=== PATIENT | male | born 1995 | race Caucasian/White ===

== ENCOUNTER 2020-05-11 09:56 | Emergency (ER) | payer BC, SELFPAY ==
[2020-05-11 09:57] VITALS: BP 164/98; PULSE 73; RESP 16; TEMP 36.9; O2SAT 97; BMI 32.5
--- NOTE | 2020-05-11 09:58 | XR_ITS ---
PROCEDURE: XR FOOT RT MIN 3V CLINICAL INDICATION: toe pain Pain, injury COMPARISON: No exams were available for comparison FINDINGS: There is a severely comminuted fracture involving the proximal phalanx of the 2nd toe. Fracture fragments are displaced laterally and dorsally. There is a longitudinal component extending into the articular surface of the PIP joint. Mildly displaced fractures are also present involving the distal shaft of the 2nd 3rd and 4th metatarsals. IMPRESSION: There is a severely comminuted fracture involving the proximal phalanx of the 2nd toe. Fracture fragments are displaced laterally and dorsally. There is a longitudinal component extending into the articular surface of the PIP joint. Mildly displaced fractures are also present involving the distal shaft of the 2nd 3rd and 4th metatarsals. Dictated by: Ayush Gallo MD 05/11/2020 11:05 Ayush Gallo MD in [place] 05/11/2020 11:05
[2020-05-11 10:09] VITALS: BMI 32.5
--- NOTE | 2020-05-11 10:20 | HMH.EDGENADL ---
ED Disposition Clinical Impression: Open fracture of toe of right foot Qualifiers: Encounter type: initial encounter Toe: lesser toe Phalanx: proximal Fracture alignment: displaced Qualified Code(s): S92.511B - Displaced fracture of proximal phalanx of right lesser toe(s), initial encounter for open fracture Metatarsal bone fracture Qualifiers: Encounter type: initial encounter Metatarsal bone: second Fracture type: closed Fracture alignment: nondisplaced Laterality: right Qualified Code(s): S92.324A - Nondisplaced fracture of second metatarsal bone, right foot, initial encounter for closed fracture Phalanx fracture, foot Qualifiers: Encounter type: initial encounter Toe: lesser toe Fracture type: open Phalanx: proximal Fracture alignment: displaced Laterality: right Qualified Code(s): S92.511B - Displaced fracture of proximal phalanx of right lesser toe(s), initial encounter for open fracture Disposition: Xfer Critical Access Hosp Condition on Discharge: Fair Referrals: PCP,No [Primary Care Provider] - Forms: Transfer Record - ED Time of Disposition: 11:18 - Critical Care Critical Care Time: No Attestation: On 05/11/20, the high probability of a clinically significant, sudden or life threatening deterioration of the following system(s) required my full and direct attention, intervention and personal management. The time I documented below is in addition to time spent performing reported procedures but includes the following listed in this critical care notation. Medical Decision Making - Medical Records Medical records reviewed: Yes: I reviewed the patient's medical records. - Fede Inquiry Pt receiving controlled substance: Yes Fede was queried for this patient: Yes Reference #:: [id number] Risks and benefits of using a controlled substance: were discussed with pt by me Vital Signs: 05/11/20 09:57 05/11/20 10:41 05/11/20 11:17 Temperature 98.5 F Temperature Source Oral Pulse Rate Pulse Rate [Right] 73 78 68 Respiratory Rate 16 Blood Pressure Blood Pressure [Right Arm] 164/98 H 159/89 H 132/91 H Blood Pressure Mean [Right Arm] 120 112 104 Blood Pressure Source [Right Arm] Automatic Cuff Automatic Cuff Blood Pressure Position Blood Pressure Position [Right Arm] Sitting Sitting Sitting 02 Sat by Pulse Oximetry 97 97 Oxygen Delivery Method Room Air Room Air 05/11/20 12:08 Temperature 98 F Temperature Source Oral Pulse Rate 78 Pulse Rate [Right] Respiratory Rate 16 Blood Pressure 132/93 H Blood Pressure [Right Arm] Blood Pressure Mean [Right Arm] Blood Pressure Source [Right Arm] Blood Pressure Position Sitting Blood Pressure Position [Right Arm] 02 Sat by Pulse Oximetry Oxygen Delivery Method Room Air Orders (Tests/Meds): ED MEDICATIONS Discontinued Medications Generic Name Dose Route Start Last Admin Trade Name Shahana PRN Reason Stop Dose Admin Cefazolin Sodium 2 gm/ Sodium 100 mls @ 200 mls/hr 05/11/20 09:59 05/11/20 10:12 Chloride IV 05/11/20 10:28 200 mls/hr ONCE ONE Administration Protocol Levofloxacin/Dextrose 750 mg in 150 mls @ 100 mls/hr 05/11/20 11:00 05/11/20 10:59 Levofloxacin 750mg/150ml Premix IV 05/25/20 10:59 100 mls/hr Q24H ELIDIA Administration Protocol Lidocaine HCl 10 ml 05/11/20 11:09 05/11/20 11:47 Lidocaine 1% 10ml Mdv SQ 05/11/20 11:10 10 ml ONCE ONE Administration Morphine Sulfate 4 mg 05/11/20 10:10 05/11/20 10:12 Morphine 4mg/Ml Syringe IV 05/11/20 10:11 4 mg ONCE ONE Administration Morphine Sulfate 4 mg 05/11/20 10:42 05/11/20 10:44 Morphine 4mg/Ml Syringe IV 05/11/20 10:43 4 mg ONCE ONE Administration Morphine Sulfate 4 mg 05/11/20 11:46 05/11/20 11:46 Morphine 4mg/Ml Syringe IV 05/11/20 11:47 4 mg ONCE ONE Administration Ondansetron HCl 4 mg 05/11/20 10:10 05/11/20 10:11 Ondansetron 4mg/2ml Vial IV 05/11/20 10:11 4 mg ONCE ONE Administration T
[2020-05-11 10:41] VITALS: BP 159/89; PULSE 78
--- NOTE | 2020-05-11 10:50 | PC.NURSE ---
Calling [facility] at this time. Dr Cooper is out of the office for the rest of the week.
[2020-05-11 11:17] VITALS: BP 132/91; PULSE 68; O2SAT 97
--- NOTE | 2020-05-11 11:30 | PC.NURSE ---
rt foot 2nd digit irrigated with sterile water, adaptic dsd applied. posterior splint applied. pt given crutches with teaching on use. pt demonstrated walking with crutches.
--- NOTE | 2020-05-11 11:39 | PC.NURSE ---
Gave report to Patricia at [facility], ER
[2020-05-11 12:08] VITALS: BP 132/93; PULSE 78; RESP 16; TEMP 36.6; O2SAT 98
== END 2020-05-11 12:11 | disposition critical access hospital (66) ==
PROVIDERS: Emergency Provider Emergency Medicine
DX: S92.511B Displaced fracture of proximal phalanx of right lesser toe(s), initial encounter for open fracture (principal); S92.324A Nondisplaced fracture of second metatarsal bone, right foot, initial encounter for closed fracture; S92.334A Nondisplaced fracture of third metatarsal bone, right foot, initial encounter for closed fracture; S92.344A Nondisplaced fracture of fourth metatarsal bone, right foot, initial encounter for closed fracture; W01.0XXA Fall on same level from slipping, tripping and stumbling without subsequent striking against object, initial encounter; Y92.019 Unspecified place in single-family (private) house as the place of occurrence of the external cause; Z23 Encounter for immunization
CPT/HCPCS: 29515; 73630; 90471; 90715; 96365; 96367; 96372; 96375; 96376; 99284; J1956; J2405

== ENCOUNTER 2021-02-15 18:50 | Emergency (ER) | payer BC, SELFPAY ==
[2021-02-15 20:29] VITALS: BP 155/78; PULSE 75; RESP 18; TEMP 37.4; O2SAT 98; BMI 31.2
[2021-02-15 20:46] VITALS: BP 155/78; PULSE 75; RESP 18; TEMP 37.4
[2021-02-15 20:50] LABS: UTC Strep Screen (Rapid) Positive (Negative)
--- NOTE | 2021-02-15 21:00 | HMH.EDUTC ---
[facility] [place] Disposition Clinical Impression: Strep throat Disposition: Home, Self-Care Condition on Discharge: Good Instructions: DI for Strep Throat, Strep Throat Additional Instructions: Drink plenty of fluids. Take tylenol or ibuprofen for pain or fever. Take the medications as directed. Follow up with your regular doctor. GO TO THE ER FOR ANY WORSENING SYMPTOMS Throw your tooth brush away and get a new one. Prescriptions: Brompheniramine/Pseudoephed/Dm [Bromfed Dm Cough Syrup] 5 ml PO Q6HP PRN #240 ml PRN Reason: Cough [facility]: [facility] Amoxicillin/Potassium Clav [Augmentin 875-125 Tablet] 1 tab PO Q12H 10 Days #20 tab Transmission Status: Pending to [facility] predniSONE [Deltasone 10mg tablet] 10 mg PO BID 3 Days #6 tab Transmission Status: Pending to [facility] Referrals: Provider,Referral, MD [Primary Care Provider] - Forms: Work/School Release Time of Disposition: 21:02 Medical Decision Making - Medical Records Medical records reviewed: No: I reviewed the patient's medical records. - Fede Inquiry Pt receiving controlled substance: No Vital Signs: 02/15/21 20:29 02/15/21 20:46 Temperature 99.4 F 99.4 F Temperature Source Oral Pulse Rate 75 Pulse Rate [Left] 75 Respiratory Rate 18 18 Blood Pressure 155/78 H Blood Pressure [Right Arm] 155/78 H Blood Pressure Mean [Right Arm] 103 02 Sat by Pulse Oximetry 98 - Lab Data Lab results reviewed: Yes: I reviewed the patient's lab results. Lab Results 02/15/21 20:39: Strep Scn Rapid Clinic Positive A Orders (Tests/Meds): ORDERS Category Date Time Status Covid-19 Nasal PCR ([facility]) Routine Lab 02/15/21 20:40 Received [facility] HPI - General Stated complaint: FEVER Time Seen by Provider: 02/15/21 21:00 Mode of Arrival: Ambulatory Source of Information: Patient Limitations: No Limitations Description of Symptoms (Recalled from Triage Doc. by RN): PT C/O FEVER, BODY ACHES, AND CONGESTION. HEENT Symptoms (Recalled from RN notes): Yes (CONGESTION/DRAINAGE) Resp Symptoms (Recalled from RN notes): No Skin Symptoms (Recalled from RN notes): No MS Symptoms (Recalled from RN notes): No Functional Status (Recalled from RN notes): FEVER AND MYALGIA - History of Present Illness Provider Complaint: He c/o fever, body ache and feeling bad since yesterday. He also has a sore throat. - Related Data Previous Rx's Medication Instructions Recorded Amoxicillin/Potassium Clav 1 tab PO Q12H 10 Days #20 tab 02/15/21 [Augmentin 875-125 Tablet] Brompheniramine/Pseudoephed/Dm 5 ml PO Q6HP PRN #240 ml 02/15/21 [Bromfed Dm Cough Syrup] predniSONE [Deltasone 10mg tablet] 10 mg PO BID 3 Days #6 tab 02/15/21 Allergies Allergy/AdvReac Type Severity Reaction Status Date / Time No Known Allergies Allergy Verified 05/29/18 07:40 - Worker's Comp Is this a Worker's Comp case?: No [facility] History - Hepatitis A Screen Drug use history?: No High risk sexual behaviors?: No History of sexually transmitted infection?: No Currently employed?: No Childcare worker?: Yes Do you have indoor plumbing?: Yes Do you have electricity?: Yes Attestation statement:: This patient has been screened for Hepatitis A risk factors. I have reviewed the patient's past medical history: Yes Medical History: Denies:: Diabetes Mellitus Type 1, Diabetes Mellitus Type 2, MRSA Amputation: No - Social History Smoking Status: Never smoker Alcohol Intake: never Occupational Status: employed ROS Obtained: Yes All systems reviewed & no additional complaints - Constitutional Constitutional: Reports as per HPI - Eyes Eyes: Denies eye discharge - ENT Ears, Nose, Mouth, and Throat: Reports as per HPI - Cardiovascular Cardiovascular: Denies chest pain - Respiratory Respiratory: Denies chest congestion, Reports cough, Denies dyspnea, Denies stridor, Denies wheezing -
== END 2021-02-15 21:11 | disposition home or self-care (01) ==
PROVIDERS: Emergency Provider Nurse Practitioner Family
DX: U07.1 COVID-19 (principal); J02.0 Streptococcal pharyngitis
CPT/HCPCS: 87880; 99203; C9803; G0463; U0003; U0005

== ENCOUNTER 2021-11-20 09:19 | Emergency (ER) | payer BC, SELFPAY ==
[2021-11-20 10:30] VITALS: BP 143/95; PULSE 88; RESP 19; TEMP 37.1; O2SAT 97; BMI 31.2
[2021-11-20 10:50] LABS: UTC Influenza A Antigen Negative (Negative); UTC Influenza B Antigen Negative (Negative)
--- NOTE | 2021-11-20 10:52 | HMH.EDUTC ---
[facility] [place] Disposition Clinical Impression: Viral syndrome Disposition: Home, Self-Care Condition on Discharge: Good Instructions: DI for Fever (Symptom) -- Adult, DI for COVID-19 (Suspected or Confirmed ), Preventing the Spread of Coronavirus Discharge Instructions Additional Instructions: *Monitor Temp, Over the counter Motrin or Tylenol as directed/as needed Tylenol every 4 hours and Motrin every 6 hours (as long as your family doctor has told you that you can take it) for fever or pain. and straight to ER if unable to lower temp less than 101.0 after medication given *Warm salt water gargles may help to soothe the throat *Throat Lozenges *Warm fluids like tea with honey may help to soothe the throat *Sleep elevated *Humidifier/Vaporizer *Bromfed may cause drowsiness. Know how it effects you (your child) before driving, caring for small child, or sending your child to school. Not other antihistamines/allergy medications while taking bromfed Follow up IMMEDIATELY for new or worsening symptoms or no Noticeable improvement over the next 48-72 hours. 911 for difficulty breathing or swallowing You were tested for today for COVID19 your test result should be back in the next 24-48 hours, you may check your results on the [facility] My Health Portal Make sure to take your Vitamins Vit. C Vit D and Zinc if you can take them Prescriptions: Brompheniramine/Pseudoephed/Dm [Bromfed Dm Cough Syrup] 5 - 10 ml PO Q4-6H PRN #200 ml PRN Reason: Cough Transmission Status: Pending to [id number] Referrals: Provider,Referral, [Primary Care Provider] - As needed Forms: Work/School Release Time of Disposition: 10:59 Medical Decision Making - Fede Inquiry Pt receiving controlled substance: No Fede was queried for this patient: No Vital Signs: 11/20/21 10:30 Temperature 98.7 F Temperature Source Oral Pulse Rate [Right Brachial] 88 Respiratory Rate 19 Blood Pressure [Right Arm] 143/95 H Blood Pressure Mean [Right Arm] 111 Blood Pressure Source [Right Arm] Automatic Cuff Blood Pressure Position [Right Arm] Sitting 02 Sat by Pulse Oximetry 97 Oxygen Delivery Method Room Air - Lab Data Lab results reviewed: Yes: I reviewed the patient's lab results. Lab Results 11/20/21 10:33: Influenza Type A Ag Negative, Influenza Type B Ag Negative Orders (Tests/Meds): ORDERS Category Date Time Status Covid-19 Nasal PCR ([facility]) Routine Lab 11/20/21 10:35 Received [facility] [place] HPI - General Stated complaint: wants covid and flu test Time Seen by Provider: 11/20/21 10:52 Mode of Arrival: Ambulatory Source of Information: Patient Limitations: No Limitations Description of Symptoms (Recalled from Triage Doc. by RN): PATIENT C/O CHEST CONGESTION, BODY ACHES, HEADACHES, FEVER AND COUGH X 2 DAYS HEENT Symptoms (Recalled from RN notes): No Resp Symptoms (Recalled from RN notes): Yes Skin Symptoms (Recalled from RN notes): No MS Symptoms (Recalled from RN notes): No Functional Status (Recalled from RN notes): WNL - History of Present Illness Provider Complaint: Patient states that he has been having head congestion, scratchy throat, body aches, chills States that he has an at home and was worried with COVID and flu and wanted to get tested - Related Data Previous Rx's Medication Instructions Recorded Brompheniramine/Pseudoephed/Dm 5 - 10 ml PO Q4-6H PRN #200 ml 11/20/21 [Bromfed Dm Cough Syrup] Allergies Allergy/AdvReac Type Severity Reaction Status Date / Time No Known Allergies Allergy Verified 05/29/18 07:40 - Worker's Comp Is this a Worker's Comp case?: No [facility] History - Hepatitis A Screen Attestation statement:: This patient has been screened for Hepatitis A risk factors. I have reviewed the patient's past medical history: Yes Medical History: Denies:: Diabetes Mellitus Type 1, Diabetes Mellitus Type 2, MRSA Amputation: No - Social History Smoking Status: Never smoker A
[2021-11-20 11:03] VITALS: BP 143/95; PULSE 88; RESP 19; TEMP 37.1; O2SAT 97
== END 2021-11-20 11:06 | disposition home or self-care (01) ==
PROVIDERS: Emergency Provider Nurse Practitioner
DX: B34.9 Viral infection, unspecified (principal)
CPT/HCPCS: 87804; 99212; C9803; G0463; U0003; U0005

== ENCOUNTER 2023-01-06 11:38 | Emergency (ER) | payer BC, SELFPAY ==
[2023-01-06 11:39] VITALS: BP 128/86; PULSE 74; RESP 16; TEMP 36.5; O2SAT 98; BMI 34.9
--- NOTE | 2023-01-06 11:58 | PC.NURSE ---
DR RAY AT BEDSIDE
--- NOTE | 2023-01-06 12:01 | XR_ITS ---
FINAL REPORT CLINICAL HISTORY: horse stomped on foot. midfoot and lat ankle pain FINDINGS: RIGHT ANKLE 3 views of the right ankle were obtained. There is no acute fracture or dislocation. The mortise is intact. Visualized joint spaces are normally aligned. There is lateral soft tissue swelling noted. IMPRESSION: No acute bony abnormality. Reviewed, Interpreted and Dictated by Boni Brown III, MD Transcribed by Esme Esteban Authenticated and . [facility]
--- NOTE | 2023-01-06 12:02 | XR_ITS ---
FINAL REPORT CLINICAL HISTORY: horse stomped on foot. midfoot and lat ankle pain FINDINGS: RIGHT FOOT 3 views of the right foot were obtained. There is no acute fracture or dislocation. There are multiple chronic fractures of the second, third and fourth metatarsals as well as the second proximal phalanx. Visualized joint spaces are normally aligned. There is forefoot soft tissue swelling noted. IMPRESSION: No acute bony abnormality. Reviewed, Interpreted and Dictated by Boni Brown III, MD Transcribed by Esme Esteban Authenticated and [facility]
--- NOTE | 2023-01-06 12:11 | PC.NURSE ---
PT MEDICATED PER EMAR, NO NEEDS AT THIS TIME
--- NOTE | 2023-01-06 12:23 | PC.NURSE ---
PT RETURNED FROM XR
--- NOTE | 2023-01-06 12:44 | HMH.EDGENADL ---
Discharge Plan Disposition Patient Disposition: Home, Self-Care Chief Complaint: Extremity Injury, Lower Prescriptions Prescriptions: No Action gdztoctuwlkfddt-swctuwqby-PN 118 ML syrup 5 - 10 ml PO Q4-6H PRN (Reason: Cough) Qty: 200 0RF Referrals Follow up/Referrals: Provider,Referral, [Primary Care Provider] - See instructions Activity Restrictions/Add. Instructions Additional Instructions/Restrictions: Call your family doctor to establish care for this visit to the emergency department and schedule follow-up within 48 hours to ensure improvement. If you have any worsening of your condition or any other concerning signs or symptoms, return to the emergency department or your primary care doctor for further evaluation. Clinical Impressions Clinical Impression: Crush injury of right foot Qualifiers: Encounter type: initial encounter Qualified Code(s): S97.81XA - Crushing injury of right foot, initial encounter Discharge ED Provider: Issa Villegas General Adult HPI General Chief complaint: Extremity Injury, Lower Stated complaint: AO10/1@work@1030, pain in Rt foot Time Seen by Provider: 01/06/23 11:44 Mode of Arrival: Ambulatory Source of Information: Patient Limitations: No Limitations Description of Symptoms (Recalled from ER Triage Doc. by RN): PT C/O PAIN TO RIGHT FOOT, STEPPED ON BY HORSE. PREVIOUS FX OF RIGHT FOOT History of Present Illness HPI narrative: 27-year-old male with history of previous injury to his right foot presenting with right foot injury. 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 Was not wearing his steel toed boots. Had immediate pain. Tried to manage at home, but it is severe, swollen today. Denies neurovascular deficits. Has associated swelling, bruising, moderate to severe pain. Related Data Previous Rx's Medication Instructions Recorded rwhfrvjiylbmemb-uypaofsrkndenun-DU 5 - 10 ml PO Q4-6H PRN Cough #200 11/20/21 2 mg-30 mg-10 mg/5 mL oral syrup mL Allergies Allergy/AdvReac Type Severity Reaction Status Date / Time No Known Allergies Allergy Verified 05/29/18 07:40 [facility] Disclaimer: The information contained in this section may have been updated after the patient was seen, as this information can be updated by other users. Social History Smoking Status: Never smoker alcohol intake: never current occupational status: other Travel in the last 8 weeks: None ROS Obtained: Yes All systems reviewed & no additional complaints except as documented Physical Exam General General appearance: alert and in no apparent distress Head Head exam: atraumatic and normocephalic Eye Eye exam: Present normal appearance, PERRL and EOMI ENT ENT exam: Present mucous membranes moist Neck Neck exam: Present normal inspection, full ROM and trachea midline Respiratory Respiratory exam: Absent respiratory distress, wheezes, stridor, accessory muscle use or prolonged expiratory phase Cardiovascular Cardiovascular exam: Present regular rate and normal rhythm Abdominal Exam Abdominal exam: Present soft; Absent distention, tenderness, guarding, rebound, rigidity or normal bowel sounds Extremities Exam Extremities exam: Present normal capillary refill and other (Tenderness, swelling, bruising about ankle and foot. Maximal tenderness and bruising over lateral malleolus, midfoot, MTPs. Range of motion intact, but limited secondary to swelling and pain. Sensory exam normal.); Absent edema Neurological Exam Neurological exam: Present alert, oriented X3, CN II-XII intact and normal gait; Absent motor sensory deficit Skin Skin exam: Present warm and dry; Absent diaphoresis or erythema Medical Decision Making Medical Records Medical records reviewed: Yes I reviewed the patient's medical records. Fede Inquiry Pt receiving controlled substance: No Fede was queried for this pat
[2023-01-06 13:30] VITALS: BP 132/80; PULSE 68; RESP 20
[2023-01-06 14:00] VITALS: BP 124/73; PULSE 68; RESP 20
[2023-01-06 14:20] VITALS: BP 124/73; PULSE 60; RESP 20; TEMP 36.8; O2SAT 99
== END 2023-01-06 14:20 | disposition home or self-care (01) ==
PROVIDERS: Emergency Provider Emergency Medicine
DX: S97.81XA Crushing injury of right foot, initial encounter (principal); W55.12XA Struck by horse, initial encounter; Y99.0 Civilian activity done for income or pay
CPT/HCPCS: 73610; 73630; 99283

== ENCOUNTER 2023-04-01 16:24 | Emergency (ER) | payer SELFPAY ==
[2023-04-01 16:25] VITALS: BP 135/68; PULSE 79; RESP 16; TEMP 36.9; O2SAT 95; BMI 34.3
--- NOTE | 2023-04-01 18:13 | PC.NURSE ---
pt placed in room 12 at this time
[2023-04-01 18:36] VITALS: BP 135/68; PULSE 79; RESP 16; TEMP 36.9; O2SAT 95
--- NOTE | 2023-04-01 19:41 | HMH.EDGENADL ---
Discharge Plan Disposition Patient Disposition: Home, Self-Care Condition: Good Prescriptions Prescriptions: New permethrin 5 % cream 1 applic topical Q14D Qty: 60 0RF Rx Instructions: apply second treatment 14 days after first treatment if live lice remain doxycycline hyclate 100 mg capsule 100 mg PO BID 14 Days Qty: 28 0RF No Action lceuhuusjjyujbt-sxddlpwdp-CC 118 ML syrup 5 - 10 ml PO Q4-6H PRN (Reason: Cough) Qty: 200 0RF Referrals Follow up/Referrals: Satish Brenner DO [Staff Physician] - See instructions Provider,Referral, [Primary Care Provider] - See instructions Activity Restrictions/Add. Instructions Additional Instructions/Restrictions: You were evaluated in the emergency department today. It is unclear which or rashes at this time, however there are many possibilities. It could be a viral, bacterial, or parasitic infection. Apply the permethrin cream from neck down and leave on for 8 to 12 hours before washing off. Do this twice. If family members at home have rash, they will also need to be treated. support specialist your prescription for doxycycline and take in case of tickborne diseases given that you have potential exposure at work. Follow-up with your primary care provider for further evaluation and management. We are providing you with information for Dr. Brenner. Return to the emergency department for new or worsening symptoms. Clinical Impressions Clinical Impression: Acute maculopapular rash Instructions Patient Instructions: DI for Rash Discharge ED Provider: Irish Calabrese General Adult HPI General Chief complaint: Skin/Abscess/Foreign Body Stated complaint: rash on both sides Time Seen by Provider: 04/01/23 18:15 Mode of Arrival: Ambulatory Source of Information: Patient Limitations: No Limitations Description of Symptoms (Recalled from ER Triage Doc. by RN): pt to ED with rash on bilateral flank that has been worsening over the last two weeks. pt denies any itching execpt minimal at night. 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 pt denies any recent illness or fevers. History of Present Illness HPI narrative: This patient is a 27-year-old male presenting to the emergency department with 2 weeks of rash on both of his flanks that has been worsening. He states that it itches only at night. Itching is very mild. It is not painful. He denies any new known exposures as far as detergents, soaps, and other issues ago. He works daily at a horse farm and notes that he could have been exposed to ticks. He also notes that he was concerned that it could be scabies based on what he had read online. He does sleep with his and he has kids at home, but no one else has a rash. He denies any fevers, cough, congestion, abdominal pain, nausea, vomiting, or other concerns. No mucosal involvement. No other issues. Related Data Previous Rx's Medication Instructions Recorded ssohgezadlpyhcv-opxubwphxfnaczw-RK 5 - 10 ml PO Q4-6H PRN Cough #200 11/20/21 2 mg-30 mg-10 mg/5 mL oral syrup mL doxycycline hyclate 100 mg capsule 100 mg PO BID 14 days #28 caps 04/01/23 permethrin 5 % topical cream 1 applic topical Q14D 2 doses #60 04/01/23 grams Allergies Allergy/AdvReac Type Severity Reaction Status Date / Time No Known Allergies Allergy Verified 05/29/18 07:40 [facility] Disclaimer: The information contained in this section may have been updated after the patient was seen, as this information can be updated by other users. Social History Smoking Status: Never smoker alcohol intake: never current occupational status: other Travel in the last 8 weeks: None ROS Obtained: Yes All systems reviewed & no additional complaints except as documented Physical Exam General General appearance: alert and in no apparent distress Head Head exam: atraumatic and normocephalic Eye Eye exam: Present normal appearanc
== END 2023-04-01 18:37 | disposition home or self-care (01) ==
PROVIDERS: Emergency Provider Emergency Medicine
DX: R21 Rash and other nonspecific skin eruption (principal)
CPT/HCPCS: 99283

== ENCOUNTER 2023-09-15 17:37 | Emergency (ER) | payer SELFPAY ==
[2023-09-15 17:45] VITALS: BP 150/87; PULSE 72; RESP 18; TEMP 37.7; O2SAT 98; BMI 32.5
--- NOTE | 2023-09-15 17:50 | ED_ITS ---
Discharge Plan Disposition Patient Disposition: Home, Self-Care Condition: Good Prescriptions Prescriptions: New amoxicillin 875 mg tablet 875 mg PO Q12H Qty: 20 0RF ondansetron 4 mg Tablet,Disintegrating 4 mg PO Q8H PRN (Reason: Nausea) Qty: 12 0RF Referrals Follow up/Referrals: Provider,Referral, [Primary Care Provider] - See instructions Activity Restrictions/Add. Instructions Additional Instructions/Restrictions: Drink plenty of fluids. Take tylenol or ibuprofen for pain or fever. Take the medications as directed. Follow up with your regular doctor. GO TO THE ER FOR ANY WORSENING SYMPTOMS Clinical Impressions Clinical Impression: Pharyngitis, Viral syndrome Stand Alone Forms Stand Alone Forms: Work/School Release Instructions Patient Instructions: DI for Pharyngitis/Tonsillopharyngitis -- Adult, DI for Viral Syndrome Discharge ED Provider: Jr Pacheco [facility] [place] General Stated complaint: fever, body aches, congestion, cough Time Seen by Provider: 09/15/23 17:50 Related Data Previous Rx's Medication Instructions Recorded amoxicillin 875 mg tablet 875 mg PO Q12H #20 tabs 09/15/23 ondansetron 4 mg disintegrating 4 mg PO Q8H PRN Nausea #12 tabs 09/15/23 tablet Allergies Allergy/AdvReac Type Severity Reaction Status Date / Time No Known Allergies Allergy Verified 09/15/23 17:57 [facility] Disclaimer: The information contained in this section may have been updated after the patient was seen, as this information can be updated by other users. Social History Smoking Status: Never smoker alcohol intake: never current occupational status: other Travel in the last 8 weeks: None ROS Obtained: Yes All systems reviewed & no additional complaints except as documented Constitutional Constitutional: Reports chills and Reports fever(s) Eyes Eyes: Denies eye discharge ENT Ears, Nose, Mouth, and Throat: Reports as per HPI Cardiovascular Cardiovascular: Denies chest pain Respiratory Respiratory: Denies chest congestion and Reports cough Gastrointestinal Gastrointestingal: Reports nausea; Denies abdominal pain, constipation, cramping, diarrhea or vomiting Musculoskeletal Musculoskeletal: Denies arthralgias Integumentary/Breasts Skin/Breast: Denies rash Neurologic Neurologic: Denies paresthesias Physical Exam General General appearance: alert and in no apparent distress Head Head exam: atraumatic, normocephalic and normal inspection Eye Eye exam: Present normal appearance, PERRL and EOMI ENT ENT exam: Present mucous membranes moist and normal external ear exam Expanded ENT Exam TM/Canal exam: Bilateral TM: erythema and bulging Nose exam: Absent sinus tenderness Mouth exam: Present normal external inspection; Absent drooling Teeth exam: Present normal inspection Throat exam: Present tonsillar erythema, tonsillomegaly and tonsillar exudate Neck Neck exam: Present normal inspection, full ROM and trachea midline; Absent tenderness, meningismus or lymphadenopathy Chest Chest inspection: Present normal inspection and symmetric chest wall rise; Absen t tenderness Respiratory Respiratory exam: Present normal lung sounds bilaterally; Absent respiratory distress, wheezes, stridor or accessory muscle use Cardiovascular Cardiovascular exam: Present regular rate and normal rhythm; Absent systolic murmur or diastolic murmur Abdominal Exam Abdominal exam: Present soft and normal bowel sounds; Absent distention, tenderness, guarding, rebound or rigidity Extremities Exam Extremities exam: Present normal inspection and normal capillary refill; Absent calf tenderness Back Exam Back exam: Present normal inspection and full ROM; Absent tenderness, CVA tenderness (R) or CVA tenderness (L) Neurological Exam Neurological exam: Present alert, oriented X3 and CN II-XII intact Psychiatric Psychiatric exam: Present normal affect and normal mood Skin Skin exam: Present warm, dry, intact and normal color Medical Decision Making Medical Records Medical records reviewed: No I reviewed the patient's medical records. Fede Inquiry Pt receiving controlled substance: No Lab Data Lab results reviewed: Yes I reviewed the patient's lab results.
[2023-09-15 19:08] VITALS: BP 150/87; PULSE 72; RESP 18; TEMP 37.7; O2SAT 98
[2023-09-15 19:12] LABS: Coronavirus 19, PCR Not Detected (NotDetected); Influenza A, PCR Not Detected (NotDetected); Influenza B, PCR Not Detected (NotDetected)
== END 2023-09-15 18:45 | disposition home or self-care (01) ==
PROVIDERS: Emergency Provider Nurse Practitioner Family
DX: J02.9 Acute pharyngitis, unspecified (principal); R50.9 Fever, unspecified; R05.9 Cough, unspecified; R09.81 Nasal congestion; B34.9 Viral infection, unspecified
CPT/HCPCS: 87636; 99212; 99214; G0463